=== PATIENT | male | born 1975 | race Caucasian/White ===

== ENCOUNTER → 2016-06-15 | Outpatient (CLI) | payer OTHER ==
--- NOTE | 2016-06-15 14:24 | US ---
EXAMINATION TYPE: US venous doppler duplex LE LT DATE OF EXAM: 06/15/2016 1:08 PM COMPARISON: NONE CLINICAL HISTORY: M79.662 Pain in left leg,R22.42 swelling left leg. No h/o dvt SIDE PERFORMED: Left TECHNIQUE: The lower extremity deep venous system is examined utilizing real time linear array sonog dat with graded compression, doppler sonography and color-flow sonography. VESSELS IMAGED: External Iliac Vein (EIV) Common Femoral Vein Deep Femoral Vein Greater Saphenous Vein * Femoral Vein Popliteal Vein Small Saphenous Vein * Proximal Calf Veins (* superficial vessels) difficult patient to scan due to large body habitus Left Leg: Appears negative for DVT IMPRESSION: Grayscale, color doppler, spectral doppler imaging performed of the deep veins of the lo wer extremities. There is normal flow, compressibility, vascular waveforms bilaterally. Technologis t reports a difficult exam technically, follow-up as indicated
== END | disposition home or self-care (01) ==
LOC: RADUSWWP 12:28
PROVIDERS: ATTEND Internal Medicine
DX: M79.662 Pain in left lower leg (principal); R22.42 Localized swelling, mass and lump, left lower limb

== ENCOUNTER 2016-08-03 09:11 | Emergency (ER) | payer OTHER ==
[2016-08-03 09:20] VITALS: RESP 16
[2016-08-03] MEDS ORDERED: SILVER NITRATE APPLICATOR 1 EACH STICK..EA. TOPICAL STA (09:25)
--- NOTE | 2016-08-03 09:33 | ED ---
General Adult HPI - General Chief complaint: Extremity Injury, Lower Stated complaint: Bleeding Time Seen by Provider: 08/03/16 09:18 Source: patient, RN notes reviewed Mode of arrival: EMS Limitations: no limitations - History of Present Illness Initial comments: 40-year-old male presents to the emergency Department chief complaint of bilateral lower extremity bleeding. Patient states he was driving after the shower and all of a sudden he noticed some areas on his legs ever bleeding. Patient states he tried to stop the bleeding with no success. Patient states that he had one of these happened last week and he held pressure and it went away. Patient states that he was unable to get them to stop so he is here so that we can help stop the bleeding. Patient states there is no falls or traumas with this. Patient denies any other symptoms at this time. Patient denies any recent fever, chills, shortness of breath, chest pain, back pain, abdominal pain, nausea vomiting, numbness or tingling, dysuria or hematuria, constipation or diarrhea, headaches or visual changes, or any other current symptoms. - Related Data Allergies Allergy/AdvReac Type Severity Reaction Status Date / Time No Known Allergies Allergy Verified 08/03/16 09:21 Review of Systems ROS Statement: Those systems with pertinent positive or pertinent negative responses have been documented in the HPI. ROS Other: All systems not noted in ROS Statement are negative. Past Medical History Past Medical History: Hypertension, Sleep Apnea/CPAP/BIPAP History of Any Multi-Drug Resistant Organisms: None Reported Past Surgical History: Appendectomy, Cholecystectomy Past Psychological History: No Psychological Hx Reported Smoking Status: Current every day smoker Past Alcohol Use History: Occasional Past Drug Use History: None Reported General Exam Limitations: no limitations General appearance: alert, in no apparent distress ENT exam: Present: normal exam, mucous membranes moist Neck exam: Present: normal inspection. Absent: tenderness, meningismus, lymphadenopathy Respiratory exam: Present: normal lung sounds bilaterally. Absent: respiratory distress, wheezes, rales, rhonchi, stridor Back exam: Present: normal inspection Neurological exam: Present: alert, oriented X3 Psychiatric exam: Present: normal affect, normal mood Skin exam: Present: warm, dry, normal color. Absent: intact (Patient appears to have small spider veins that do have a small wound over top was bleeding which now has stopped to the right and left calf), rash Course Vital Signs 08/03/16 09:12 Temperature 98.3 F Pulse Rate 74 Respiratory 16 Rate Blood Pressure 115/59 Medical Decision Making - Medical Decision Making 40-year-old male presents to the emergency department with appears to be superficial wounds over spider veins on bilateral legs that have stopped. This time patient underwent cautery. We did discuss follow-up with his doctor return parameters and all questions. Patient stated that he understood and he is given plan. This time and will be discharged home. Disposition Clinical Impression: Bleeding from wound, Varicose veins of both lower extremities Disposition: HOME SELF-CARE Condition: Stable Instructions: Varicose Veins (ED) Additional Instructions: Please use medication as discussed. Please follow up with family doctor if symptoms have not improved over the next two days. Please return to the emergency room if your symptoms increase or worsen or for any other concerns. Referrals: Shyla Miller MD [Primary Care Provider] - 1-2 days Time of Disposition: 09:45
[2016-08-03 09:54] VITALS: BP 102/55; PULSE 73; TEMP 97.6
== END 2016-08-03 09:59 | disposition home or self-care (01) ==
LOC: EC 09:11
DX: I83.893 Varicose veins of bilateral lower extremities with other complications (principal); F17.200 Nicotine dependence, unspecified, uncomplicated
CPT/HCPCS: 99283

== ENCOUNTER 2017-05-04 17:34 | Emergency (ER) | payer OTHER ==
[2017-05-04 17:53] VITALS: BP 140/71; PULSE 90; RESP 20; TEMP 98.1
--- NOTE | 2017-05-04 18:23 | ED ---
Skin/Abscess/FB HPI - General Chief complaint: Skin/Abscess/Foreign Body Stated complaint: asbcess near tailbone Time Seen by Provider: 05/04/17 17:56 Source: patient, RN notes reviewed Mode of arrival: ambulatory Limitations: no limitations - History of Present Illness Initial comments: This is a 41-year-old male who presents to the emergency department with chief [facility] Patient states that Sunday he developed this abscess. He states that it has progressively grown in size and has become painful. He does state that it is been draining on its own. He states that the pain is made worse with walking and sitting. Denies any history of MRSA. Denies any similar previous episodes. Denies fever, chills, chest pain, shortness of breath, abdominal pain, nausea or vomiting, constipation or diarrhea, dysuria or hematuria, numbness or tingling, headache or vision changes. - Related Data Home Medications Medication Instructions Recorded Confirmed ALPRAZolam [ALPRAZolam] 1 mg PO HS 10/31/16 10/31/16 ARIPiprazole [ARIPiprazole] 10 mg PO DAILY 10/31/16 10/31/16 Bisoprol/Hydrochlorothiazide 1 tab PO DAILY 10/31/16 10/31/16 [Bisoprolol-Hctz 5-6.25 mg Tab] Ferrous Sulfate [Feosol] 325 mg PO DAILY 10/31/16 10/31/16 Furosemide [Lasix] 40 mg PO DAILY 10/31/16 10/31/16 Gabapentin [Neurontin] 300 mg PO QID 10/31/16 10/31/16 Hydrocodone/Acetaminophen [[place] 1 tab PO Q6H PRN 10/31/16 10/31/16 10-325] Loratadine [Loratadine] 10 mg PO DAILY 10/31/16 10/31/16 Montelukast [Singulair] 10 mg PO HS 10/31/16 10/31/16 Naproxen [Naproxen] 500 mg PO BID 10/31/16 10/31/16 Omeprazole [Omeprazole] 20 mg PO BID 10/31/16 10/31/16 Potassium Chloride ER [K-Dur 20] 20 meq PO DAILY 10/31/16 10/31/16 Previous Rx's Medication Instructions Recorded Butenafine HCl [Lotrimin Ultra] 1 applic TOPICAL BID #30 gm 10/31/16 Cephalexin [Keflex] 500 mg PO Q12HR #20 cap 05/04/17 Sulfamethox-Tmp 800-160Mg [Bactrim 1 tab PO Q12HR #20 tab 05/04/17 DS 800-160 mg] Allergies Allergy/AdvReac Type Severity Reaction Status Date / Time No Known Allergies Allergy Verified 05/04/17 17:53 Review of Systems ROS Statement: Those systems with pertinent positive or pertinent negative responses have been documented in the HPI. ROS Other: All systems not noted in ROS Statement are negative. Past Medical History Past Medical History: Hypertension, Sleep Apnea/CPAP/BIPAP History of Any Multi-Drug Resistant Organisms: None Reported Past Surgical History: Appendectomy, Cholecystectomy Past Psychological History: No Psychological Hx Reported Smoking Status: Current every day smoker Past Alcohol Use History: Occasional Past Drug Use History: None Reported General Exam - General Exam Comments Initial Comments: General: Awake and alert, well-developed; in no apparent distress. HEENT: Head atraumatic, normocephalic. Pupils are equal, round and reactive to light. Extraocular movements intact. Oropharynx moist without erythema or exudate. Neck: Supple. Normal ROM. Cardiovascular: Regular rate and rhythm. No murmurs, rubs or gallops. Chest symmetrical. Respiratory: Lungs clear to auscultation bilaterally. No wheezes, rales or rhonchi. Normal respiratory effort with no use of accessory muscles. Musculoskeletal: Normal ROM, no tenderness bilateral upper and lower extremities. Ambulating normally. Skin: [place], warm and dry. 3.0 cm x 2.0 cm erythematous area of fluctuance at tailbone. Active draining of yellow pus. Neurological: Alert and oriented x3. CN II-XII grossly intact. Speech is fluent and answers are appropriate. No focal neuro deficits. Psychiatric: Normal mood and affect. No overt signs of depression or anxiety noted. Limitations: no limitations Course Vital Signs 05/04/17 17:51 Temperature 98.1 F Pulse Rate 90 Respiratory 20 Rate Blood Pressure 140/71 O2 Sat by Pulse 97 Oximetry Medical Decision Making - Medical Decision Making This is a 41-year-old male who presented to the emergency department with chief complaint of abscess at tailbone. This abscess is actively draining. I was able to extract copious amounts of yellow/green pus from the abscess. A wound culture was obtained and is pending. Patient denies any history of MRSA. He will be started on Bactrim and Keflex antibiotics. Recommended warm compresses. Patient's vital signs are stable and he is afebrile. Patient will be discharged home at this time. He is in agreement with plan and voices understanding. All questions were answered. Disposition Clinical Impression: Abscess of skin or subcutaneous tissue Disposition: HOME SELF-CARE Condition: Good Instructions: Abscess (ED), Abscess Incision and Drainage (ED) Additional Instructions: Please apply warm compresses. Please take medications as prescribed. Please follow up with primary care provider within 1-2 days. Return to emergency department if symptoms should worsen or any concerns arise. Prescriptions: Cephalexin [Keflex] 500 mg PO Q12HR #20 cap Sulfamethox-Tmp 800-160Mg [Bactrim DS 800-160 mg] 1 tab PO Q12HR #20 tab Referrals: Shyla Miller MD [Primary Care Provider] - 1-2 days Time of Disposition: 18:23
== END 2017-05-04 18:39 | disposition home or self-care (01) ==
LOC: EC 17:34
DX: L02.212 Cutaneous abscess of back [any part, except buttock and flank] (principal); I10 Essential (primary) hypertension; G47.30 Sleep apnea, unspecified; Z99.89 Dependence on other enabling machines and devices; F17.200 Nicotine dependence, unspecified, uncomplicated; Z79.1 Long term (current) use of non-steroidal anti-inflammatories (NSAID); Z79.899 Other long term (current) drug therapy
CPT/HCPCS: 87070; 87205; 99283

== ENCOUNTER 2017-06-03 16:32 | Inpatient (IN) | payer OTHER ==
--- NOTE | 2017-06-03 17:57 | ED ---
Skin/Abscess/FB HPI - General Chief complaint: Skin/Abscess/Foreign Body Stated complaint: Abscess Time Seen by Provider: 06/03/17 17:32 Source: patient, RN notes reviewed, old records reviewed Mode of arrival: ambulatory Limitations: no limitations - History of Present Illness Initial comments: This is a 41-year-old male who presents to the emergency department with chief complaint of tailbone abscess. Patient was seen by myself on May 04, 2017 with the same complaint. I&D was performed at that time and patient was started on Bactrim and Keflex. He states he finished the course of antibiotics and followed up with Dr. Miller. The abscess was drained a second time. He followed up with Dr. Miller again 4 days ago and had a third I&D performed. He was started on minocycline and is currently taking them. Patient states that the abscess continues to drain but has been getting bigger. Denies fever, chills, chest pain, shortness of breath, abdominal pain, nausea or vomiting, constipation or diarrhea, dysuria or hematuria, numbness or tingling, headache or vision changes. - Related Data Home Medications Medication Instructions Recorded Confirmed ALPRAZolam [ALPRAZolam] 1 mg PO HS 10/31/16 05/04/17 ARIPiprazole [ARIPiprazole] 10 mg PO DAILY 10/31/16 05/04/17 Bisoprol/Hydrochlorothiazide 1 tab PO DAILY 10/31/16 05/04/17 [Bisoprolol-Hctz 5-6.25 mg Tab] Ferrous Sulfate [Feosol] 325 mg PO DAILY 10/31/16 05/04/17 Furosemide [Lasix] 40 mg PO DAILY 10/31/16 05/04/17 Gabapentin [Neurontin] 300 mg PO QID 10/31/16 05/04/17 Hydrocodone/Acetaminophen [[place] 1 tab PO Q6H PRN 10/31/16 05/04/17 10-325] Loratadine [Loratadine] 10 mg PO DAILY 10/31/16 05/04/17 Montelukast [Singulair] 10 mg PO HS 10/31/16 05/04/17 Naproxen [Naproxen] 500 mg PO BID 10/31/16 05/04/17 Omeprazole [Omeprazole] 20 mg PO BID 10/31/16 05/04/17 Potassium Chloride ER [K-Dur 20] 20 meq PO DAILY 10/31/16 05/04/17 Previous Rx's Medication Instructions Recorded Butenafine HCl [Lotrimin Ultra] 1 applic TOPICAL BID #30 gm 10/31/16 Cephalexin [Keflex] 500 mg PO Q12HR #20 cap 05/04/17 Sulfamethox-Tmp 800-160Mg [Bactrim 1 tab PO Q12HR #20 tab 05/04/17 DS 800-160 mg] Allergies Allergy/AdvReac Type Severity Reaction Status Date / Time No Known Allergies Allergy Verified 06/03/17 16:48 Review of Systems ROS Statement: Those systems with pertinent positive or pertinent negative responses have been documented in the HPI. ROS Other: All systems not noted in ROS Statement are negative. Past Medical History Past Medical History: Hypertension, Sleep Apnea/CPAP/BIPAP History of Any Multi-Drug Resistant Organisms: None Reported Past Surgical History: Appendectomy, Cholecystectomy Past Psychological History: No Psychological Hx Reported Smoking Status: Current every day smoker Past Alcohol Use History: Occasional Past Drug Use History: None Reported General Exam - General Exam Comments Initial Comments: General: Awake and alert, well-developed; in no apparent distress. HEENT: Head atraumatic, normocephalic. Pupils are equal, round and reactive to light. Extraocular movements intact. Oropharynx moist without erythema or exudate. Neck: Supple. Normal ROM. Cardiovascular: Regular rate and rhythm. No murmurs, rubs or gallops. Chest symmetrical. Respiratory: Lungs clear to auscultation bilaterally. No wheezes, rales or rhonchi. Normal respiratory effort with no use of accessory muscles. Musculoskeletal: Normal ROM, no tenderness bilateral upper and lower extremities. Ambulating normally. Skin: [place], warm and dry. Approximately 3 cm x 3 cm erythematous area of fluctuance with active serous drainage at superior gluteal fold. Neurological: Alert and oriented x3. CN II-XII grossly intact. Speech is fluent and answers are appropriate. No focal neuro deficits. Psychiatric: Normal mood and affect. No overt signs of depression or anxiety noted. Limitations: no limitations Course Vital Signs 06/03/17 16:45 Temperature 97.6 F Pulse Rate 84 Respiratory 18 Rate Blood Pressure 163/85 O2 Sat by Pulse 99 Oximetry Medical Decision Making - Medical Decision Making This is a 41-year-old male who presents to the emergency department with chief complaint of abscess. Patient was seen one month ago and since that time has had 3 incision and drainages and has been on 3 different antibiotics. Patient states that the abscess continues to drain but has been growing in size. Patient started on IV Unasyn and vancomycin. Discussed admission for IV antibiotics and surgery consult. Patient would like to be admitted and is in agreement with plan. Vital signs are stable and the patient is in no acute distress. All questions answered. Patient will be admitted to Dr. Chatterjee's group with a consult to surgery. Disposition Clinical Impression: Abscess of skin or subcutaneous tissue Disposition: ADMITTED IP TO THIS HOSP Condition: Stable Is patient prescribed a controlled substance at d/c from ED?: No Referrals: Shyla Miller MD [Primary Care Provider] - 1-2 days Time of Disposition: 18:24
[2017-06-03] MEDS ORDERED: VANCOMYCIN IV PER PHARMACY 1 EACH MISC MISCELLANE PRN (18:15)
[2017-06-03] MEDS ORDERED: AMPICILLIN-SULBACTAM 3 GM in SODIUM CHLORIDE 0.9% 100 ML IVPB STA (18:16)
[2017-06-03] MEDS ORDERED: MORPHINE SULFATE 4 MG/0.8 ML SYRINGE (INJ) IV PRN (18:20)
[2017-06-03] MEDS ORDERED: VANCOMYCIN 2,500 MG in SODIUM CHLORIDE 0.9% 500 ML IVPB STA (18:20)
[2017-06-03] MEDS ORDERED: NALOXONE 0.4 MG/ML 1 ML VIAL IV PRN (18:20)
[2017-06-03] MEDS ORDERED: ACETAMINOPHEN TAB 325 MG TAB PO PRN (18:20)
[2017-06-03 18:31] LABS: ALT 58 U/L (21-72); AST 36 U/L (17-59); Albumin 4.2 g/dL (3.5-5.0); Alkaline Phosphatase 141 U/L (38-126); Anion Gap 11 mmol/L; Blood Urea Nitrogen 17 mg/dL (9-20); Calcium 9.6 mg/dL (8.4-10.2); Carbon Dioxide 26 mmol/L (22-30); Chloride 102 mmol/L (98-107); Glucose 82 mg/dL (74-99); Potassium 4.2 mmol/L (3.5-5.1); Sodium 139 mmol/L (137-145); Total Bilirubin 0.7 mg/dL (0.2-1.3); Total Protein 7.4 g/dL (6.3-8.2)
[2017-06-03 18:33] LABS: Basophils # (A) 0.1 k/uL (0-0.2); Basophils % (A) 1 %; Eosinophils # (A) 0.3 k/uL (0-0.7); Eosinophils % (A) 3 %; HCT 44.7 % (39.0-53.0); HGB 15.7 gm/dL (13.0-17.5); Lymphocytes # (A) 2.2 k/uL (1.0-4.8); Lymphocytes % (A) 25 %; MCH 29.9 pg (25.0-35.0); MCHC 35.2 g/dL (31.0-37.0); MCV 85.1 fL (80.0-100.0); Mean Platelet Volume 6.4; Monocytes # (A) 0.4 k/uL (0-1.0); Monocytes % (A) 5 %; Neutrophils # (A) 5.6 k/uL (1.3-7.7); Neutrophils % (A) 64 %; Platelet Count 232 k/uL (150-450); RBC 5.26 m/uL (4.30-5.90); RDW 14.8 % (11.5-15.5); WBC 8.7 k/uL (3.8-10.6)
[2017-06-03] MEDS: SODIUM CHLORIDE 0.9% 1,000 ML IV SCH (18:58)
[2017-06-03 22:21] VITALS: BMI 43.4
[2017-06-04] MEDS: AMPICILLIN-SULBACTAM 3 GM in SODIUM CHLORIDE 0.9% 100 ML IVPB SCH ×5 (00:59→23:16)
[2017-06-04] MEDS: SODIUM CHLORIDE 0.9% 1,000 ML IV SCH ×2 (04:59→18:03)
[2017-06-04 07:31] LABS: Basophils # (A) 0.1 k/uL (0-0.2); Basophils % (A) 1 %; Eosinophils # (A) 0.3 k/uL (0-0.7); Eosinophils % (A) 5 %; HCT 43.5 % (39.0-53.0); Lymphocytes % (A) 27 %; MCH 29.5 pg (25.0-35.0); MCHC 34.4 g/dL (31.0-37.0); MCV 85.7 fL (80.0-100.0); Mean Platelet Volume 6.7; Monocytes # (A) 0.5 k/uL (0-1.0); Monocytes % (A) 7 %; Neutrophils # (A) 4.3 k/uL (1.3-7.7); Neutrophils % (A) 58 %; Platelet Count 225 k/uL (150-450); RBC 5.08 m/uL (4.30-5.90); RDW 14.7 % (11.5-15.5); WBC 7.4 k/uL (3.8-10.6)
[2017-06-04 07:46] LABS: ALT 46 U/L (21-72); AST 30 U/L (17-59); Albumin 3.6 g/dL (3.5-5.0); Alkaline Phosphatase 117 U/L (38-126); Anion Gap 12 mmol/L; Blood Urea Nitrogen 17 mg/dL (9-20); Calcium 9.2 mg/dL (8.4-10.2); Carbon Dioxide 27 mmol/L (22-30); Chloride 103 mmol/L (98-107); Glucose 77 mg/dL (74-99); Potassium 4.2 mmol/L (3.5-5.1); Sodium 142 mmol/L (137-145); Total Bilirubin 0.6 mg/dL (0.2-1.3); Total Protein 6.6 g/dL (6.3-8.2)
[2017-06-04] MEDS: VANCOMYCIN 2,500 MG in SODIUM CHLORIDE 0.9% 500 ML IVPB SCH ×2 (07:58→19:31)
[2017-06-04] MEDS ORDERED: MORPHINE ORAL SOLN 10 MG/5 ML CUP PO PRN (08:55)
[2017-06-04] MEDS ORDERED: ALPRAZolam 0.5 MG TAB PO PRN (11:06)
--- NOTE | 2017-06-04 11:08 | P.HPIM ---
History of Present Illness 41-year-old male who presents to the emergency department with chief complaint of tailbone abscess. Patient was seen by myself on May 04, 2017 with the same complaint. I&D was performed at that time and patient was started on Bactrim and Keflex. He states he finished the course of antibiotics and followed up with Dr. Miller. The abscess was drained a second time. He followed up with Dr. Miller again 4 days ago and had a third I&D performed. He was started on minocycline and is currently taking them. Patient states that the abscess continues to drain but has been getting bigger. Denies fever, chills, chest pain, shortness of breath, abdominal pain, nausea or vomiting, constipation or diarrhea, dysuria or hematuria, numbness or tingling, headache or vision changes. Patient denied any fever chills. Patient doesn't have any elevated white blood cell count probably because of being on antibiotics. Review of Systems REVIEW OF SYSTEMS: CONSTITUTIONAL: No fever, no malaise, no fatigue. HEENT: No recent visual problems or hearing problems. Denied any sore throat. CARDIOVASCULAR: No chest pain, orthopnea, PND, no palpitations, no syncope. PULMONARY: No shortness of breath, no cough, no hemoptysis. GASTROINTESTINAL: No diarrhea, no nausea, no vomiting, no abdominal pain. Normoactive bowel sounds. NEUROLOGICAL: No headaches, no weakness, no numbness. HEMATOLOGICAL: Denies any bleeding or petechiae. GENITOURINARY: Denies any burning micturition, frequency, or urgency. MUSCULOSKELETAL/RHEUMATOLOGICAL: Denies any joint pain, swelling, or any muscle pain. Abscess in the sacral area ENDOCRINE: Denies any polyuria or polydipsia. The rest of the 14-point review of systems is negative. Past Medical History Past Medical History: Hypertension, Sleep Apnea/CPAP/BIPAP History of Any Multi-Drug Resistant Organisms: None Reported Past Surgical History: Appendectomy, Cholecystectomy Past Psychological History: No Psychological Hx Reported Smoking Status: Current every day smoker Past Alcohol Use History: Occasional Past Drug Use History: None Reported Medications and Allergies Home Medications Medication Instructions Recorded Confirmed Type ALPRAZolam [ALPRAZolam] 0.5 - 1 mg PO HS 10/31/16 06/04/17 History Hydrocodone/Acetaminophen [[place] 1 tab PO QID 10/31/16 06/04/17 History 10-325] Loratadine [Loratadine] 10 mg PO DAILY 10/31/16 06/04/17 History Montelukast [Singulair] 10 mg PO HS 10/31/16 06/04/17 History Naproxen [Naproxen] 500 mg PO BID PRN 10/31/16 06/04/17 History Minocycline HCl [Minocin] 100 mg PO BID 06/04/17 06/04/17 History traZODone HCL [Desyrel] 200 mg PO HS 06/04/17 06/04/17 History Allergies Allergy/AdvReac Type Severity Reaction Status Date / Time No Known Allergies Allergy Verified 06/04/17 09:11 Physical Exam Vitals: Vital Signs Temp Pulse Pulse Resp BP BP Pulse Ox 06/04/17 07:00 97.5 F L 78 16 133/83 96 06/04/17 00:08 97.4 F L 68 16 115/78 98 06/04/17 00:00 68 16 06/03/17 19:23 97.6 F 76 18 127/62 06/03/17 16:45 97.6 F 84 18 163/85 99 Intake and Output 06/03/17 06/04/17 06/04/17 22:59 06:59 14:59 Other: Voiding Method Toilet # Voids 0 Weight 145.15 kg PHYSICAL EXAMINATION: GENERAL: The patient is alert and oriented x3, not in any acute distress. Well developed, well nourished. HEENT: Pupils are round and equally reacting to light. EOMI. No scleral icterus. No conjunctival pallor. Normocephalic, atraumatic. No pharyngeal erythema. No thyromegaly. CARDIOVASCULAR: S1 and S2 present. No murmurs, rubs, or gallops. PULMONARY: Chest is clear to auscultation, no wheezing or crackles. ABDOMEN: Soft, nontender, nondistended, normoactive bowel sounds. No palpable organomegaly. MUSCULOSKELETAL: No joint swelling or deformity. EXTREMITIES: No cyanosis, clubbing, or pedal edema. NEUROLOGICAL: Gross neurological examination did not reveal any focal deficits. SKIN: Patient does have a sacral bone abscess which is about 5X5 cm the drainage stopped momentarily Results CBC & Chem 7: 06/04/17 06:46 06/04/17 06:46 Labs: Abnormal Lab Results - Last 24 Hours (Table) 06/03/17 Range/Units 18:08 Alkaline Phosphatase 141 H (38-126) U/L Assessment and Plan Plan: -Recurrent tailbone abscess: Patient will undergo incision and drainage, patient is on Unasyn to cover gram negatives and anaerobic bacteria and vancomycin for gram-positive bacteria. Which will be continued blood cultures were obtained will also obtain wound cultures. -Morbid obesity, sleep apnea continue with the CPAP machine. -History of hypertension presently well controlled without any medication.
[2017-06-04] MEDS ORDERED: SODIUM CHLORIDE 0.9% 150 ML IV ONE (12:08)
--- NOTE | 2017-06-04 13:36 | P.GSCN ---
History of Present Illness Consult date: 06/04/17 Reason for Consult: Pilonidal abscess History of present illness: Patient admitted with recurrent pilonidal abscess. He has had this drained 3-4 times. Most recently drained by Dr. Miller 4 days ago. Cultures apparently are pending from that. He presents to the hospital complaining of recurrent pain. White blood cell count is normal. Denies fevers. Review of Systems The patient denies any acute changes in vision or hearing, no dysphagia or odynophagia, no chest pain or shortness of breath, no dysuria or hematuria, no headache, no runny nose, no rectal bleeding or melena, no unexplained weight loss Past Medical History Past Medical History: Hypertension, Sleep Apnea/CPAP/BIPAP History of Any Multi-Drug Resistant Organisms: None Reported Past Surgical History: Appendectomy, Cholecystectomy Past Psychological History: No Psychological Hx Reported Smoking Status: Current every day smoker Past Alcohol Use History: Occasional Past Drug Use History: None Reported Medications and Allergies Home Medications Medication Instructions Recorded Confirmed Type ALPRAZolam [ALPRAZolam] 0.5 - 1 mg PO HS 10/31/16 06/04/17 History Hydrocodone/Acetaminophen [[place] 1 tab PO QID 10/31/16 06/04/17 History 10-325] Loratadine [Loratadine] 10 mg PO DAILY 10/31/16 06/04/17 History Montelukast [Singulair] 10 mg PO HS 10/31/16 06/04/17 History Naproxen [Naproxen] 500 mg PO BID PRN 10/31/16 06/04/17 History Minocycline HCl [Minocin] 100 mg PO BID 06/04/17 06/04/17 History traZODone HCL [Desyrel] 200 mg PO HS 06/04/17 06/04/17 History Allergies Allergy/AdvReac Type Severity Reaction Status Date / Time No Known Allergies Allergy Verified 06/04/17 12:05 Surgical - Exam Vital Signs Temp Pulse Resp BP Pulse Ox 97.6 F 84 18 163/85 99 06/03/17 16:45 06/03/17 16:45 06/03/17 16:45 06/03/17 16:45 06/03/17 16:45 Physical exam: General: Well-developed, well-nourished HEENT: Normocephalic, sclerae nonicteric Abdomen: Nontender, nondistended Extremities: No edema, pilonidal region with 5 x 3 cm area of erythema, fluctuance noted, mild tenderness Neuro: Alert and oriented Results - Labs 06/04/17 06:46 06/04/17 06:46 Abnormal Lab Results - Last 24 Hours (Table) 06/03/17 Range/Units 18:08 Alkaline Phosphatase 141 H (38-126) U/L Diabetes panel 06/03/17 06/04/17 Range/Units 18:08 06:46 Sodium 139 142 (137-145) mmol/L Potassium 4.2 4.2 (3.5-5.1) mmol/L Chloride 102 103 (98-107) mmol/L Carbon Dioxide 26 27 (22-30) mmol/L BUN 17 17 (9-20) mg/dL Creatinine 0.88 0.85 (0.66-1.25) mg/dL Glucose 82 77 (74-99) mg/dL Calcium 9.6 9.2 (8.4-10.2) mg/dL AST 36 30 (17-59) U/L ALT 58 46 (21-72) U/L Alkaline Phosphatase 141 H 117 (38-126) U/L Total Protein 7.4 6.6 (6.3-8.2) g/dL Albumin 4.2 3.6 (3.5-5.0) g/dL Calcium panel 06/03/17 06/04/17 Range/Units 18:08 06:46 Calcium 9.6 9.2 (8.4-10.2) mg/dL Albumin 4.2 3.6 (3.5-5.0) g/dL Pituitary panel 06/03/17 06/04/17 Range/Units 18:08 06:46 Sodium 139 142 (137-145) mmol/L Potassium 4.2 4.2 (3.5-5.1) mmol/L Chloride 102 103 (98-107) mmol/L Carbon Dioxide 26 27 (22-30) mmol/L BUN 17 17 (9-20) mg/dL Creatinine 0.88 0.85 (0.66-1.25) mg/dL Glucose 82 77 (74-99) mg/dL Calcium 9.6 9.2 (8.4-10.2) mg/dL Adrenal panel 06/03/17 06/04/17 Range/Units 18:08 06:46 Sodium 139 142 (137-145) mmol/L Potassium 4.2 4.2 (3.5-5.1) mmol/L Chloride 102 103 (98-107) mmol/L Carbon Dioxide 26 27 (22-30) mmol/L BUN 17 17 (9-20) mg/dL Creatinine 0.88 0.85 (0.66-1.25) mg/dL Glucose 82 77 (74-99) mg/dL Calcium 9.6 9.2 (8.4-10.2) mg/dL Total Bilirubin 0.7 0.6 (0.2-1.3) mg/dL AST 36 30 (17-59) U/L ALT 58 46 (21-72) U/L Alkaline Phosphatase 141 H 117 (38-126) U/L Total Protein 7.4 6.6 (6.3-8.2) g/dL Albumin 4.2 3.6 (3.5-5.0) g/dL Assessment and Plan (1) Pilonidal abscess Narrative/Plan: Options discussed with the patient. We'll proceed with incision and drainage at this time. Patient will require future pilonidal cystectomy in all likelihood. Risks of bleeding, infection, wound, recurrence, scarring, pain were discussed. He understands and wishes to proceed. Current Visit: Yes Status: Acute Code(s): L05.01 - PILONIDAL CYST WITH ABSCESS SNOMED Code(s): 26972790
[2017-06-04] MEDS ORDERED: SUCCINYLCHOLINE CHLORIDE VIAL 200 MG/10 ML VIAL IV ONE (13:37)
[2017-06-04] MEDS ORDERED: fentaNYL (PF) 50 MCG/ML 2 ML AMP ONE (13:37)
[2017-06-04] MEDS ORDERED: LACTATED RINGERS 1,000 ML IV ONE (13:37)
[2017-06-04] MEDS ORDERED: LIDOCAINE 1% INJ 10MG/ML (20 ML MDV) ONE (13:37)
[2017-06-04] MEDS ORDERED: MIDAZOLAM 2 MG/2 ML VIAL ONE (13:37)
[2017-06-04] MEDS ORDERED: PROPOFOL 10 MG/ML 20 ML VIAL IV ONE (13:37)
[2017-06-04] MEDS ORDERED: BUPIVACAINE (PF) 0.25% 30 ML VIAL SQ ONE (13:58)
--- NOTE | 2017-06-04 14:19 | P.OP ---
Date of Procedure: 06/04/17 Procedure(s) Performed: PREOPERATIVE DIAGNOSIS: Pilonidal abscess POSTOPERATIVE DIAGNOSIS: Same PROCEDURE: Incision and drainage and debridement pilonidal abscess SURGEON: Cesilia BELTRÁN: Lizbeth Beauchamp ANESTHESIA: Gen. COMPLICATIONS: None OPERATIVE PROCEDURE: The patient was brought in place never table in the supine position. The patient was placed under general anesthesia. The patient was then placed in the left decubitus position. The pilonidal region was prepped and draped. The skin was localized with Marcaine. An elliptical incision was made removing the central portion of skin where the prior I&D site had been performed. There was some purulent fluid draining from this location. The size of my incision was 3 x 1 cm. The subcutaneous tissues were inspected. The patient had a large abscess cavity measuring approximately 5 x 6 cm. Cultures were taken. There was a large amount of friable tissue at the base of the abscess that was debrided using the curet sharply in a excisional manner. This was the subcutaneous tissues that were debrided. The area was irrigated with saline. Bleeding was controlled using electrocautery. The wound was then packed with one-inch iodoform gauze. A sterile dressing was applied. DISPOSITION: Stable to recovery room
[2017-06-04] MEDS ORDERED: MORPHINE SULFATE 4 MG/0.8 ML SYRINGE (INJ) IVP ONE (14:46)
[2017-06-04] MEDS: HEPARIN SODIUM,PORCINE 5,000 UNIT/ML 1 ML VIAL SQ SCH ×2 (18:03→23:15)
[2017-06-04] MEDS: KETOROLAC 30 MG/ML 1 ML VIAL IVP PRN (18:06)
[2017-06-04] MEDS ORDERED: MONTELUKAST 10 MG TAB PO SCH (21:00)
[2017-06-04] MEDS ORDERED: traZODone HCL 100 MG TAB PO SCH (21:00)
[2017-06-04] MEDS: FAMOTIDINE 20 MG TAB PO SCH (21:32)
[2017-06-04 22:38] VITALS: TEMP 97.8
[2017-06-05] MEDS: SODIUM CHLORIDE 0.9% 1,000 ML IV SCH ×2 (02:06→08:46)
[2017-06-05] MEDS: AMPICILLIN-SULBACTAM 3 GM in SODIUM CHLORIDE 0.9% 100 ML IVPB SCH ×2 (05:25→12:44)
[2017-06-05 07:16] LABS: Anion Gap 9 mmol/L; Blood Urea Nitrogen 13 mg/dL (9-20); Calcium 8.9 mg/dL (8.4-10.2); Carbon Dioxide 28 mmol/L (22-30); Chloride 103 mmol/L (98-107); Glucose 78 mg/dL (74-99); Potassium 4.1 mmol/L (3.5-5.1); Sodium 140 mmol/L (137-145)
[2017-06-05 08:35] VITALS: BP 126/77; PULSE 64; RESP 20
[2017-06-05] MEDS: VANCOMYCIN 2,500 MG in SODIUM CHLORIDE 0.9% 500 ML IVPB SCH (08:39)
[2017-06-05] MEDS: HEPARIN SODIUM,PORCINE 5,000 UNIT/ML 1 ML VIAL SQ SCH (08:39)
[2017-06-05] MEDS: FAMOTIDINE 20 MG TAB PO SCH (08:39)
[2017-06-05] MEDS: KETOROLAC 30 MG/ML 1 ML VIAL IVP PRN (08:49)
--- NOTE | 2017-06-05 12:56 | P.PN ---
Subjective Progress Note Date: 06/05/17 Principal diagnosis: Pilonidal abscess Patient says he feels better today. Some drainage from the incision site. No fevers. Cultures pending. White blood cell count normal. Objective - Vital Signs Vital signs: Vital Signs Temp 97.8 F 06/05/17 08:34 Pulse 64 06/05/17 08:34 Resp 20 06/05/17 08:34 BP 126/77 06/05/17 08:34 Pulse Ox 97 06/05/17 08:34 Intake & Output 06/04/17 06/05/17 06/05/17 18:59 06:59 18:59 Intake Total 550 2400 Output Total 50 500 Balance 500 1900 Intake: IV 550 Intake, IV Titration 2400 Amount Sodium Chloride 0.9% 150 2400 ml As IV .Ayi Laile ONE Rx# :[id number] Output: Urine 500 Estimated Blood Loss 50 Other: Voiding Method Toilet Toilet Urinal # Voids 3 3 - Exam Abdominal region with decreased tenderness, some seropurulent drainage, erythema diminished. - Labs CBC & Chem 7: 06/04/17 06:46 06/05/17 06:39 Labs: Microbiology - Last 24 Hours (Table) 06/04/17 14:10 Gram Stain - Preliminary Cyst Wound Culture - Preliminary 06/03/17 18:08 Blood Culture - Preliminary Blood No Growth after 24 hours 06/04/17 14:10 Anaerobic Culture - Preliminary Cyst Assessment and Plan (1) Pilonidal abscess Narrative/Plan: (Local wound care with dressing changes daily. Stable for discharge from my standpoint today. Current Visit: Yes Status: Acute Code(s): L05.01 - PILONIDAL CYST WITH ABSCESS SNOMED Code(s): 24062264
--- NOTE | 2017-06-05 14:58 | P.DS ---
Providers Date of admission: 06/03/17 18:58 Attending physician: Stefania Chatterjee Primary care physician: [facility] Course: 41-year-old gentleman was admitted secondary to pilonidal abscess which was incised and drained. Wound care as per surgery. Patient is being partially treated for this with antibodies because of which I'm not expecting wound cultures to be positive patient will be discharged on 10 days of Augmentin and Bactrim to cover anaerobic bacteria streptococci, gram-negative organisms and Bactrim to cover MRSA PHYSICAL EXAMINATION: GENERAL: The patient is alert and oriented x3, not in any acute distress. Well developed, well nourished. HEENT: Pupils are round and equally reacting to light. EOMI. No scleral icterus. No conjunctival pallor. Normocephalic, atraumatic. No pharyngeal erythema. No thyromegaly. CARDIOVASCULAR: S1 and S2 present. No murmurs, rubs, or gallops. PULMONARY: Chest is clear to auscultation, no wheezing or crackles. ABDOMEN: Soft, nontender, nondistended, normoactive bowel sounds. No palpable organomegaly. MUSCULOSKELETAL: No joint swelling or deformity. EXTREMITIES: No cyanosis, clubbing, or pedal edema. NEUROLOGICAL: Gross neurological examination did not reveal any focal deficits. SKIN: Status post drainage of the sacral abscess Assessment and Plan Plan: -Recurrent tailbone abscess: Patient will undergo incision and drainage. -Morbid obesity, sleep apnea continue with the CPAP machine. -History of hypertension presently well controlled without any medication. Patient Condition at Discharge: Stable Plan - Discharge Summary Discharge Rx Participant: Yes New Discharge Prescriptions: New Amoxic-Pot Clav 875-125Mg [Augmentin 875-125] 1 tab PO Q12HR #20 tablet Sulfamethox-Tmp 800-160Mg [Bactrim DS 800-160 mg] 1 tab PO Q12HR #20 tab No Action Naproxen [Naproxen] 500 mg PO BID PRN PRN Reason: Pain Montelukast [Singulair] 10 mg PO HS Loratadine [Loratadine] 10 mg PO DAILY Hydrocodone/Acetaminophen [Terral 10-325] 1 tab PO QID ALPRAZolam [ALPRAZolam] 0.5 - 1 mg PO HS traZODone HCL [Desyrel] 200 mg PO HS Minocycline HCl [Minocin] 100 mg PO BID Discharge Medication List ALPRAZolam [ALPRAZolam] 0.5 - 1 mg PO HS 10/31/16 [History] Hydrocodone/Acetaminophen [Terral 10-325] 1 tab PO QID 10/31/16 [History] Loratadine [Loratadine] 10 mg PO DAILY 10/31/16 [History] Montelukast [Singulair] 10 mg PO HS 10/31/16 [History] Naproxen [Naproxen] 500 mg PO BID PRN 10/31/16 [History] Minocycline HCl [Minocin] 100 mg PO BID 06/04/17 [History] traZODone HCL [Desyrel] 200 mg PO HS 06/04/17 [History] Amoxic-Pot Clav 875-125Mg [Augmentin 875-125] 1 tab PO Q12HR #20 tablet [Rx] Sulfamethox-Tmp 800-160Mg [Bactrim DS 800-160 mg] 1 tab PO Q12HR #20 tab [Rx] Follow up Appointment(s)/Referral(s): Dwayne Lomas MD [Medical Doctor] - 06/13/17 3:40 pm Shyla Miller MD [Primary Care Provider] - 06/11/17 2:50 pm Caro Aguirre MD [STAFF PHYSICIAN] - 06/14/17 10:30 am Patient Instructions/Handouts: Abscess Incision and Drainage (DC) Discharge Disposition: HOME SELF-CARE
[2017-06-06] MEDS ORDERED: VANCOMYCIN TROUGH DUE 1 EACH MISC MISCELLANE ONE (07:00)
== END 2017-06-05 16:25 | disposition home or self-care (01) | DRG 571 ==
LOC: EC 16:32 → 3SUR 18:58
PROVIDERS: ADMIT Hospitalist; ATTEND Hospitalist
PROC: 0JB70ZZ Excision of Back Subcutaneous Tissue and Fascia, Open Approach (ICD-10-PCS; principal; 2017-06-04 07:30)
DX: L05.01 Pilonidal cyst with abscess (principal); Z68.41 Body mass index [BMI] 40.0-44.9, adult; E66.01 Morbid (severe) obesity due to excess calories; G47.30 Sleep apnea, unspecified; I10 Essential (primary) hypertension; F17.200 Nicotine dependence, unspecified, uncomplicated; Z79.899 Other long term (current) drug therapy
CPT/HCPCS: 36415; 80048; 80053; 83605; 85025; 87040; 87070; 87075; 87205; 88304; 96365; 99284